=== PATIENT | male | born 1945 | race African-American/Black ===

== ENCOUNTER 2018-04-17 11:08 | Inpatient (IN) | payer OTHER ==
[2018-04-17 11:27] VITALS: BMI 23.5
--- NOTE | 2018-04-17 13:46 | HP ---
CIWA Score Nausea/Vomitin Muscle Tremors: 2 Anxiety: 2 Agitation: 2 Paroxysmal Sweats: 1-Minimal Palms Moist Orientation: 0-Oriented Tacttile Disturbances: 1-Very Mild Itch/Numbness Auditory Disturbances: 1-Very Mild Visual Disturbances: 0-None Headache: 2-Mild CIWA-Ar Total Score: 13 - Admission Criteria OASAS Guidelines: Admission for Medically Managed Detox: Requires at least one of the followin. CIWA greater than 12 2. Seizures within the past 24 hours 3. Delirium tremens within the past 24 hours 4. Hallucinations within the past 24 hours 5. Acute intervention needed for co occurring medical disorder 6. Acute intervention needed for co occurring psychiatric disorder 7. Severe withdrawal that cannot be handled at a lower level of care (continued vomiting, continued diarrhea, abnormal vital signs) requiring intravenous medication and/or fluids 8. 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 no significant period of sobriety cirrhosis history of copd - Ebola screening Have you traveled outside of the country in the last 21 days: No Have you had contact with anyone from an Ebola affected area: No Have you been sick,other than usual withdrawal symptoms: No Do you have a fever: No - Review of Systems Constitutional: Loss of Appetite, Malaise, Night Sweats, Changes in sleep, Weakness EENT: reports: No Symptoms Reported Respiratory: reports: No Symptoms reported Cardiac: reports: No Symptoms Reported GI: reports: Nausea, Abdominal cramping : reports: No Symptoms Reported Musculoskeletal: reports: Back Pain, Muscle Pain Integumentary: reports: Dryness Neuro: reports: Headache, Tremors Endocrine: reports: No Symptoms Reported Hematology: reports: No Symptoms Reported Psychiatric: reports: No Sypmtoms Reported, Judgement Intact, Mood/Affect Appropiate, Orientated x3 Other Systems: Reviewed and Negative Patient History - Patient Medical History Hx Anemia: No Hx Asthma: No Hx Chronic Obstructive Pulmonary Disease (COPD): No Hx Cancer: No Hx Cardiac Disorders: No Hx Congestive Heart Failure: No Hx Hypertension: No Hx Hypercholesterolemia: No Hx Pacemaker: No HX Cerebrovascular Accident: No Hx Seizures: No Hx Dementia: No Hx Diabetes: No Hx Gastrointestinal Disorders: Yes (peptic ulcer) Hx Liver Disease: Yes (cirrhois) Hx Genitourinary Disorders: No Hx Sexually Transmitted Disorders: No Hx Renal Disease (ESRD): No Hx Thyroid Disease: No Hx Human Immunodeficiency Virus (HIV): No (in 2008) Hx Hepatitis C: Yes (treated) Hx Depression: No Hx Suicide Attempt: No Hx Bipolar Disorder: No Hx Schizophrenia: No Other Medical History: no suicidal,no homicidal - Patient Surgical History Hx Orthopedic Surgery: Yes (traumatic amputation of right 5th finger) - PPD History Previous Implant?: Yes Documented Results: Positive w/o proof - Smoking Cessation Smoking history: Never smoked - Substance & Tx. History Hx Alcohol Use: Yes Hx Substance Use: Yes Substance Use Type: Alcohol, Marijuana Hx Substance Use Treatment: Yes (1990 [facility] ) - Substances Abused Alcohol Route: Oral Frequency: Daily Amount used: 1 pint rum or wine Age of first use: 15 Date of Last Use: 04/17/18 Marijuana/Hashish Route: Smoking Frequency: Daily Amount used: $20 Age of first use: 15 Date of Last Use: 04/17/18 Family Disease History - Family Disease History Family Disease History: Other: Brother (alcohol) Admission Physical Exam BHS - Vital Signs Vital Signs: Vital Signs - 24 hr 04/17/18 11:24 Temperature 98.8 F Pulse Rate 83 Respiratory 17 Rate Blood Pressure 116/68 - Physical General Appearance: Yes: Moderate Distress, Tremorous, Irritable, Sweating, Anxious HEENTM: Yes: Normal ENT Inspection, LISSY, Pharynx Normal Respiratory: Yes: Lungs Clear, Normal Breath Sounds, No Respiratory Distress Neck: Yes: Supple, Trachea in good position Breast: Yes: Within Normal Limits Cardiology: Yes: Within Normal Limits, Regular Rhythm, S1, S2 Abdominal: Yes: Within Normal Limits, Normal Bowel Sounds, Non Tender, Flat, Soft Genitourinary: Yes: Within Normal Limits Back: Yes: Muscle Spasm Musculoskeletal: Yes: Back pain, Muscle Pain Extremities: Yes: Tremors Neurological: Yes: jig grinder II-XII NML intact, Fully Oriented, Alert, Motor Strength 5/5 Integumentary: Yes: Dry Lymphatic: Yes: Within Normal Limits - Diagnostic (1) Alcohol dependence with uncomplicated withdrawal Current Visit: Yes Status: Acute (2) Cannabis dependence Current Visit: Yes Status: Acute (3) Hepatitis C Current Visit: Yes Status: Acute (4) Cirrhosis Current Visit: Yes Status: Acute (5) Hypercholesteremia Current Visit: Yes Status: Acute (6) COPD (chronic obstructive pulmonary disease) Current Visit: Yes Status: Acute (7) Anxiety and depression Current Visit: Yes Status: Acute (8) Peptic ulcer disease Current Visit: Yes Status: Acute Cleared for Admission [facility] - Detox or Rehab [facility] Level of Care: Medically Managed Detox Regimen/Protocol: Librium (patient would like to be on librium,has bee in detox with librium before) [facility] Breath Alcohol Content Breath Alcohol Content: 0.02 Urine Drug Screen - Results Drug Screen Negative: No Urine Drug Screen Results: THC-Marijuana, MET-Methamphetamine Inpatient Rehab Admission - Rehab Decision to Admit Inpatient rehab admission?: No
[2018-04-17] MEDS ORDERED: LOPERAMIDE HCL 2 MG CAPSULE PO PRN (14:26)
[2018-04-17] MEDS ORDERED: IBUPROFEN 400 MG TABLET (FP) PO PRN (14:26)
[2018-04-17] MEDS ORDERED: guaiFENesin/D-METHORPHAN HB 10 ML UNIT-DOSE CUPS PO PRN (14:26)
[2018-04-17] MEDS ORDERED: MAGNESIUM CITRATE 300 ML BOTTLE PO PRN (14:26)
[2018-04-17] MEDS ORDERED: MENTHOL/PHENOL 1 EACH UD MM PRN (14:26)
[2018-04-17] MEDS ORDERED: ACETAMINOPHEN 325 MG TABLET (FP) PO PRN (14:26)
[2018-04-17] MEDS ORDERED: P-EPHED 60MG/TRIPROLIDI 2.5MG TABLET PO PRN (14:26)
[2018-04-17] MEDS ORDERED: MAG HYDROX/AL HYDROX/SIMETH 30 ML UNIT-DOSE CUP PO PRN (14:26)
[2018-04-17] MEDS ORDERED: MAGNESIUM HYDROX 2400MG/30ML ORAL SUSPENSION 30 ML CUP PO PRN (14:26)
[2018-04-17] MEDS ORDERED: chlordiazePOXIDE HCL 25 MG CAPSULE PO PRN (14:26)
[2018-04-17] MEDS ORDERED: ALBUTEROL SO4 8 GM HFA INHALER IH PRN (14:30)
--- NOTE | 2018-04-17 15:10 | CONSULT ---
[facility] Psychiatric Consult - Data Date of interview: 04/17/18 Admission source: [facility] Identifying data: This is a 72 years old male, single, childless, living alone, on pension, with no psychiatric hospitalization history, with history of Alcohol dependence, is reporting alcihil withdrawal symptoms and seeking detox. Substance Abuse History: Smoking history: Never smoked. - Substance & Tx. History. Hx Alcohol Use: Yes. Hx Substance Use: Yes. Substance Use Type: Alcohol, Marijuana. Hx Substance Use Treatment: Yes (1990 [facility] ) Medical History: HepC+, Liver Cirrhosis, COPD, Traumatic amputation of 5th finger (1970) Psychiatric History: Patient reports history bof depression and anxiety, reports no history of psychiatric hospitalization, reports no suicidal, homicdial history,. Patient is taking prior to admission: Zoloft 100mg poqd Physical/Sexual Abuse/Trauma History: Denies Additional Comment: Zoloft 100mg poqd Mental Status Exam - Mental Status Exam Alert and Oriented to: Person Cognitive Function: Fair Patient Appearance: Well Groomed Mood: Apprehensive Affect: Mood Congruent Patient Behavior: Cooperative Speech Pattern: Appropriate Voice Loudness: Mildly Soft/Quiet Thought Process: Goal Oriented Thought Disorder: Being Controlled Hallucinations: Denies Suicidal Ideation: Denies Homicidal Ideation: Denies Insight/Judgement: Fair Sleep: Difficulty falling asleep Appetite: Fair Muscle strength/Tone: Normal Gait/Station: Normal Additional Comments: Zoloft 100mg poqd Psychiatric Findings - Problem List ([place] 1, 2,3) (1) Alcohol dependence with uncomplicated withdrawal Current Visit: Yes Status: Acute (2) Anxiety and depression Current Visit: Yes Status: Acute (3) COPD (chronic obstructive pulmonary disease) Current Visit: Yes Status: Acute (4) Cannabis dependence Current Visit: Yes Status: Acute (5) Cirrhosis Current Visit: Yes Status: Acute (6) Hepatitis C Current Visit: Yes Status: Acute (7) Hypercholesteremia Current Visit: Yes Status: Acute - Initial Treatment Plan Initial Treatment Plan: Zoloft 100mg poqd
[2018-04-17] MEDS: PSYLLIUM 5.85 GM PACKET PO SCH (15:46)
[2018-04-17] MEDS: SERTRALINE HCL 50 MG TABLET (FP) PO SCH (17:34)
[2018-04-17] MEDS: chlordiazePOXIDE HCL 25 MG CAPSULE PO SCH ×2 (17:34→22:22)
[2018-04-17] MEDS ORDERED: MELATONIN 5 MG TABLETS PO PRN (22:00)
[2018-04-17] MEDS: THIAMINE HCL 100 MG TABLET (FP) PO SCH (22:21)
[2018-04-17] MEDS: ATORVASTATIN CA 10 MG TABLET (FP) PO SCH (22:22)
[2018-04-17] MEDS: CYCLOBENZAPRINE HCL 10 MG TABLET (FP) PO PRN (22:24)
[2018-04-18] MEDS: chlordiazePOXIDE HCL 25 MG CAPSULE PO SCH ×4 (06:00→22:09)
[2018-04-18] MEDS: PRENATAL VITAMINS W/ FOLIC ACID TABLET (FP) PO SCH (10:12)
[2018-04-18] MEDS: RANITIDINE HCL 150 MG TABLET (FP) PO SCH ×2 (10:12→22:09)
[2018-04-18] MEDS: SERTRALINE HCL 50 MG TABLET (FP) PO SCH (10:12)
[2018-04-18] MEDS: PSYLLIUM 5.85 GM PACKET PO SCH (10:16)
[2018-04-18 10:25] LABS: URINE APPEARANCE CLEAR; URINE BILIRUBIN NEGATIVE (<2.0 mg/dL); URINE COLOR YELLOW; URINE GLUCOSE (UA) NEGATIVE (NEGATIVE); URINE KETONE NEGATIVE (NEGATIVE); URINE LEUK ESTERASE NEGATIVE (NEGATIVE); URINE NITRITE NEGATIVE (NEGATIVE); URINE PROTEIN NEGATIVE (NEGATIVE); URINE UROBILINOGEN NEGATIVE mg/dL (0.2-1.0)
[2018-04-18 10:32] LABS: ALK PHOS 94 U/L (45-117); ANION GAP 3 MMOL/L (8-16); BILIRUBIN,TOTAL 0.8 mg/dL (0.2-1); BLOOD UREA NITROGEN 11 mg/dL (7-18); CALCIUM 8.6 mg/dL (8.5-10.1); CHLORIDE 107 mmol/L (98-107); CO2 26 mmol/L (21-32); CREATININE 1.2 mg/dL (0.55-1.3); GLUCOSE,RANDOM 90 mg/dL (74-106); POTASSIUM 4.6 mmol/L (3.5-5.1); SGOT/AST 22 U/L (15-37); SGPT/ALT 17 U/L (13-61); SODIUM 136 mmol/L (136-145); TOT PROT 8.4 g/dl (6.4-8.2)
[2018-04-18 10:41] LABS: HEMOGLOBIN 14.3 GM/dL (11.7-16.9); MCH 33.5 pg (25.7-33.7); MCHC 34.8 g/dl (32.0-35.9); MEAN CELL VOLUME 96.1 fl (80-96); MEAN PLT VOLUME 8.1 fl (7.5-11.1); PLATELET COUNT 209 K/MM3 (134-434); RBC 4.26 M/mm3 (4.00-5.60); RDW 13.5 % (11.9-15.9); WHITE BLOOD COUNT 3.4 K/mm3 (4.0-10.0)
[2018-04-18 11:15] LABS: SICKLE CELL SCREEN NEGATIVE (NEGATIVE)
--- NOTE | 2018-04-18 13:06 | PN ---
S CIWA - CIWA Score Nausea/Vomitin Muscle Tremors: 2 Anxiety: 2 Agitation: 2 Paroxysmal Sweats: 3 Orientation: 0-Oriented Tacttile Disturbances: 1-Very Mild Itch/Numbness Auditory Disturbances: 0-None Visual Disturbances: 0-None Headache: 0-None Present CIWA-Ar Total Score: 12 BHS Progress Note (SOAP) Subjective: interrupted sleep, sweats Objective: 04/18/18 13:05 Vital Signs Temperature 97.7 F 04/18/18 08:51 Pulse Rate 65 04/18/18 08:51 Respiratory Rate 18 04/18/18 08:51 Blood Pressure 130/78 04/18/18 08:51 O2 Sat by Pulse Oximetry (%) Laboratory Tests 04/18/18 04/18/18 04/18/18 06:25 06:25 06:25 WBC 3.4 L RBC 4.26 Hgb 14.3 Hct 41.0 MCV 96.1 H MCH 33.5 MCHC 34.8 RDW 13.5 Plt Count 209 MPV 8.1 Sickle Cell Screen Negative Sodium 136 Potassium 4.6 Chloride 107 Carbon Dioxide 26 Anion Gap 3 L BUN 11 Creatinine 1.2 Creat Clearance w eGFR 59.51 Random Glucose 90 Calcium 8.6 Total Bilirubin 0.8 AST 22 ALT 17 Alkaline Phosphatase 94 Total Protein 8.4 H Albumin 4.0 Urine Color Urine Appearance Urine pH Ur Specific [place] Urine Protein Urine Glucose (UA) Urine Ketones Urine Blood Urine Nitrite Urine Bilirubin Urine Urobilinogen Ur Leukocyte Esterase RPR Titer Nonreactive 04/18/18 08:30 WBC RBC Hgb Hct MCV MCH MCHC RDW Plt Count MPV Sickle Cell Screen Sodium Potassium Chloride Carbon Dioxide Anion Gap BUN Creatinine Creat Clearance w eGFR Random Glucose Calcium Total Bilirubin AST ALT Alkaline Phosphatase Total Protein Albumin Urine Color Yellow Urine Appearance Clear Urine pH 5.0 Ur Specific [place] 1.020 Urine Protein Negative Urine Glucose (UA) Negative Urine Ketones Negative Urine Blood Negative Urine Nitrite Negative Urine Bilirubin Negative Urine Urobilinogen Negative Ur Leukocyte Esterase Negative RPR Titer pt aox3 in nad ambulating Assessment: 04/18/18 13:05 withdrawal sx's Plan: cont. detox increase fluids ensure bid
[2018-04-18] MEDS: THIAMINE HCL 100 MG TABLET (FP) PO SCH (22:09)
[2018-04-18] MEDS: ATORVASTATIN CA 10 MG TABLET (FP) PO SCH (22:09)
[2018-04-19] MEDS: chlordiazePOXIDE HCL 25 MG CAPSULE PO SCH ×2 (06:27→10:10)
[2018-04-19] MEDS: PSYLLIUM 5.85 GM PACKET PO SCH (10:09)
[2018-04-19] MEDS: PRENATAL VITAMINS W/ FOLIC ACID TABLET (FP) PO SCH (10:10)
[2018-04-19] MEDS: SERTRALINE HCL 50 MG TABLET (FP) PO SCH (10:10)
[2018-04-19] MEDS: RANITIDINE HCL 150 MG TABLET (FP) PO SCH ×2 (10:10→23:09)
--- NOTE | 2018-04-19 13:49 | PN ---
S CIWA - CIWA Score Nausea/Vomitin-No Nausea/No Vomiting Muscle Tremors: 3 Anxiety: 4-Mod. Anxious/Guarded Agitation: 3 Paroxysmal Sweats: 1-Minimal Palms Moist Orientation: 0-Oriented Tacttile Disturbances: 0-None Auditory Disturbances: 0-None Visual Disturbances: 0-None Headache: 0-None Present CIWA-Ar Total Score: 11 BHS Progress Note (SOAP) Subjective: SLIGHT ANXIETY,SWEATS, DECREASED APPETITE. Objective: 04/19/18 13:48 Vital Signs 04/19/18 04/19/18 06:00 10:03 Temperature 96.8 F L 98.1 F Pulse Rate 62 86 Respiratory 18 18 Rate Blood Pressure 116/71 125/80 Laboratory Tests 04/18/18 04/18/18 04/18/18 06:25 06:25 06:25 WBC 3.4 L RBC 4.26 Hgb 14.3 Hct 41.0 MCV 96.1 H MCH 33.5 MCHC 34.8 RDW 13.5 Plt Count 209 MPV 8.1 Sickle Cell Screen Negative Sodium 136 Potassium 4.6 Chloride 107 Carbon Dioxide 26 Anion Gap 3 L BUN 11 Creatinine 1.2 Creat Clearance w eGFR 59.51 Random Glucose 90 Calcium 8.6 Total Bilirubin 0.8 AST 22 ALT 17 Alkaline Phosphatase 94 Total Protein 8.4 H Albumin 4.0 Urine Color Urine Appearance Urine pH Ur Specific [place] Urine Protein Urine Glucose (UA) Urine Ketones Urine Blood Urine Nitrite Urine Bilirubin Urine Urobilinogen Ur Leukocyte Esterase RPR Titer Nonreactive 04/18/18 08:30 WBC RBC Hgb Hct MCV MCH MCHC RDW Plt Count MPV Sickle Cell Screen Sodium Potassium Chloride Carbon Dioxide Anion Gap BUN Creatinine Creat Clearance w eGFR Random Glucose Calcium Total Bilirubin AST ALT Alkaline Phosphatase Total Protein Albumin Urine Color Yellow Urine Appearance Clear Urine pH 5.0 Ur Specific [place] 1.020 Urine Protein Negative Urine Glucose (UA) Negative Urine Ketones Negative Urine Blood Negative Urine Nitrite Negative Urine Bilirubin Negative Urine Urobilinogen Negative Ur Leukocyte Esterase Negative RPR Titer Assessment: 04/19/18 13:48 WITHDRAWALS SX Plan: CONTINUE DETOX
[2018-04-19] MEDS: chlordiazePOXIDE 5 MG CAPSULE PO SCH ×2 (19:01→23:09)
--- NOTE | 2018-04-19 22:19 | EKG ---
Test Reason : Blood Pressure : / mmHG Vent. Rate : 055 BPM Atrial Rate : 055 BPM P-R Int : 230 ms QRS Dur : 088 ms QT Int : 430 ms P-R-T Axes : 065 -02 072 degrees QTc Int : 411 ms SINUS BRADYCARDIA WITH 1ST DEGREE A-V BLOCK NONSPECIFIC T WAVE ABNORMALITY ABNORMAL ECG NO PREVIOUS ECGS AVAILABLE Confirmed by DELIA COLORADO MD ([id number]) on 04/19/2018 10:19:08 PM Referred By: Confirmed By:DELIA COLORADO MD
[2018-04-19] MEDS: CYCLOBENZAPRINE HCL 10 MG TABLET (FP) PO PRN (23:09)
[2018-04-19] MEDS: ATORVASTATIN CA 10 MG TABLET (FP) PO SCH (23:09)
[2018-04-19] MEDS: hydrOXYzine PAMOATE 50 MG CAPSULE (FP) PO PRN (23:09)
[2018-04-19] MEDS: THIAMINE HCL 100 MG TABLET (FP) PO SCH (23:09)
[2018-04-20] MEDS: chlordiazePOXIDE 5 MG CAPSULE PO SCH ×2 (05:59→10:44)
[2018-04-20] MEDS: SERTRALINE HCL 50 MG TABLET (FP) PO SCH (10:44)
[2018-04-20] MEDS: RANITIDINE HCL 150 MG TABLET (FP) PO SCH ×2 (10:44→23:07)
[2018-04-20] MEDS: PRENATAL VITAMINS W/ FOLIC ACID TABLET (FP) PO SCH (10:44)
[2018-04-20] MEDS: PSYLLIUM 5.85 GM PACKET PO SCH (10:45)
--- NOTE | 2018-04-20 16:21 | PN ---
BHS Progress Note (SOAP) Subjective: Denies withdrawal symptoms; appears anxious Objective: 04/20/18 16:20 Last Vital Signs Temp Pulse Resp BP Pulse Ox 97.9 F 82 16 121/78 04/20/18 13:28 04/20/18 13:28 04/20/18 13:28 04/20/18 13:28 Laboratory Tests 04/18/18 04/18/18 04/18/18 06:25 06:25 06:25 WBC 3.4 L RBC 4.26 Hgb 14.3 Hct 41.0 MCV 96.1 H MCH 33.5 MCHC 34.8 RDW 13.5 Plt Count 209 MPV 8.1 Sickle Cell Screen Negative Sodium 136 Potassium 4.6 Chloride 107 Carbon Dioxide 26 Anion Gap 3 L BUN 11 Creatinine 1.2 Creat Clearance w eGFR 59.51 Random Glucose 90 Calcium 8.6 Total Bilirubin 0.8 AST 22 ALT 17 Alkaline Phosphatase 94 Total Protein 8.4 H Albumin 4.0 Urine Color Urine Appearance Urine pH Ur Specific [place] Urine Protein Urine Glucose (UA) Urine Ketones Urine Blood Urine Nitrite Urine Bilirubin Urine Urobilinogen Ur Leukocyte Esterase RPR Titer Nonreactive 04/18/18 08:30 WBC RBC Hgb Hct MCV MCH MCHC RDW Plt Count MPV Sickle Cell Screen Sodium Potassium Chloride Carbon Dioxide Anion Gap BUN Creatinine Creat Clearance w eGFR Random Glucose Calcium Total Bilirubin AST ALT Alkaline Phosphatase Total Protein Albumin Urine Color Yellow Urine Appearance Clear Urine pH 5.0 Ur Specific [place] 1.020 Urine Protein Negative Urine Glucose (UA) Negative Urine Ketones Negative Urine Blood Negative Urine Nitrite Negative Urine Bilirubin Negative Urine Urobilinogen Negative Ur Leukocyte Esterase Negative RPR Titer Labs reviewed Assessment: 04/20/18 16:20 Withdrawal symptoms Plan: Continue detox Encouraged PO water hydration
[2018-04-20] MEDS: chlordiazePOXIDE HCL 10 MG CAPSULE PO SCH ×2 (17:05→23:07)
[2018-04-20] MEDS: CYCLOBENZAPRINE HCL 10 MG TABLET (FP) PO PRN (23:07)
[2018-04-20] MEDS: ATORVASTATIN CA 10 MG TABLET (FP) PO SCH (23:07)
[2018-04-20] MEDS: hydrOXYzine PAMOATE 50 MG CAPSULE (FP) PO PRN (23:07)
[2018-04-20] MEDS: THIAMINE HCL 100 MG TABLET (FP) PO SCH (23:07)
[2018-04-21] MEDS: chlordiazePOXIDE HCL 10 MG CAPSULE PO SCH (06:21)
--- NOTE | 2018-04-21 08:24 | DS ---
[facility] Detox Discharge Summary Admission Date: 04/17/18 Discharge Date: 04/21/18 - History Present History: Alcohol Dependence, Cannabis Dependence - Physical Exam Results Vital Signs: Vital Signs Temperature 97 F L 04/21/18 06:42 Pulse Rate 89 04/21/18 06:42 Respiratory Rate 18 04/21/18 06:42 Blood Pressure 108/74 04/21/18 06:42 O2 Sat by Pulse Oximetry (%) - Treatment Hospital Course: Detox Protocol Followed, Detoxed Safely, Responded well, Discharged Condition Good, Rehab Referral Accepted - Medication Discharge Medications: Ambulatory Orders Albuterol Sulfate Inhaler - [Ventolin Hfa Inhaler -] 2 inh PO Q4H PRN 04/17/18 Atorvastatin Ca [Lipitor] 10 mg PO HS 04/17/18 Cyclobenzaprine HCl [Flexeril -] 10 mg PO TID PRN 04/17/18 Doxylamine Succinate [Unisom] 25 mg PO HS 04/17/18 Psyllium Husk [Metamucil] 660 gm PO DAILY 04/17/18 Sertraline HCl [Zoloft] 100 mg PO DAILY #30 tablet 04/17/18 - Diagnosis (1) Alcohol dependence with uncomplicated withdrawal Current Visit: Yes Status: Chronic (2) Anxiety and depression Current Visit: Yes Status: Acute (3) COPD (chronic obstructive pulmonary disease) Current Visit: Yes Status: Acute (4) Cannabis dependence Current Visit: Yes Status: Chronic (5) Cirrhosis Current Visit: Yes Status: Chronic (6) Hepatitis C Current Visit: Yes Status: Chronic Qualifiers: Viral hepatitis chronicity: unspecified Hepatic coma status: without hepatic coma Qualified Code(s): B19.20 - Unspecified viral hepatitis C without hepatic coma (7) Hypercholesteremia Current Visit: Yes Status: Chronic (8) Peptic ulcer disease Current Visit: Yes Status: Chronic - AMA Did Patient Leave Against Medical Advice: No (pt declined referral to rehab)
[2018-04-21 09:14] VITALS: BP 98/64; PULSE 99; TEMP 97.7
== END 2018-04-21 09:05 | disposition home or self-care (01) | DRG 897 ==
LOC: YASAS 11:08 → Y6N 14:32
PROVIDERS: ADMIT Surgery; ATTEND Surgery
PROC: HZ2ZZZZ Detoxification Services for Substance Abuse Treatment (ICD-10-PCS; principal; 2018-04-17)
DX: F10.230 Alcohol dependence with withdrawal, uncomplicated (principal); F12.20 Cannabis dependence, uncomplicated; F41.8 Other specified anxiety disorders; F32.9 Major depressive disorder, single episode, unspecified; J44.9 Chronic obstructive pulmonary disease, unspecified; K74.60 Unspecified cirrhosis of liver; E78.00 Pure hypercholesterolemia, unspecified; K27.9 Peptic ulcer, site unspecified, unspecified as acute or chronic, without hemorrhage or perforation; Z89.021 Acquired absence of right finger(s)
CPT/HCPCS: 36415; 80053; 81003; 85027; 85660; 86593; 93005; 93010

== ENCOUNTER 2019-02-07 10:41 | Inpatient (IN) | payer OTHER ==
[2019-02-07 11:22] VITALS: BMI 22.1
--- NOTE | 2019-02-07 13:12 | HP ---
CIWA Score Nausea/Vomitin Muscle Tremors: 4-Moderate,w/Arms Extend Anxiety: 4-Mod. Anxious/Guarded Agitation: 1-Slight > Activity Paroxysmal Sweats: No Perspiration Orientation: 1-Uncertain about Date Tacttile Disturbances: 1-Very Mild Itch/Numbness Auditory Disturbances: 1-Very Mild Visual Disturbances: 1-Very Mild Sensitivity Headache: 2-Mild CIWA-Ar Total Score: 17 - Admission Criteria OASAS Guidelines: Admission for Medically Managed Detox: Requires at least one of the followin. CIWA greater than 12 2. Seizures within the past 24 hours 3. Delirium tremens within the past 24 hours 4. Hallucinations within the past 24 hours 5. Acute intervention needed for co occurring medical disorder 6. Acute intervention needed for co occurring psychiatric disorder 7. Severe withdrawal that cannot be handled at a lower level of care (continued vomiting, continued diarrhea, abnormal vital signs) requiring intravenous medication and/or fluids 8. Patient presents the following: CIWA greater than 12 Admission Criteria Met: Admission criteria met Admitting History and Physical - Admission History Source: Patient, Medical Record - Past Medical History Cardiovascular: Yes: Hyperlipdemia Pulmonary: Yes: COPD Hepatobiliary: Yes: Cirrhosis Psych: Yes: Addictions, Depression Musculoskeletal: Yes: Chronic low back pain - Smoking History Smoking history: Former smoker Have you smoked in the past 12 months: No If you are a former smoker, when did you quit?: 1997 - Alcohol/Substance Use Hx Alcohol Use: Yes - Social History Usual Living Arrangement: Yes: Alone Admission ROS [facility] Chief Complaint: I need to stop drinking and smoking reefer - it's causing me a whole lot of problems especially money ones and with my woman Allergies/Adverse Reactions: Allergies Allergy/AdvReac Type Severity Reaction Status Date / Time No Known Allergies Allergy Verified 02/07/19 11:03 History of Present Illness: 73 yo gentleman here for detox from alcohol - patient states he can't stop drinking - starts early and goes all day. Previously here in detox 04/17/18 - did okay for about two months then relapsed, never followed up on outpatient referral "I thought I was okay". No seizures but has had black outs in past. Has cirrhosis from drinking. No recent ED visits. Patient is not on disability. Patient lives alone in his apartment. He has depression but never hospitalized, on zoloft from primary, which he takes daily. Exam Limitations: No Limitations - Ebola screening Have you traveled outside of the country in the last 21 days: No (N) Have you had contact with anyone from an Ebola affected area: No Do you have a fever: No - Review of Systems Constitutional: Malaise, Changes in sleep, Weakness EENT: reports: No Symptoms Reported Respiratory: reports: Cough (sometimes a cough which just come over me - not every day but a few times a week - states he thinks it's due to the marijuana smoking - coughs up 'junk' (dark speckled phlegm)) Cardiac: reports: No Symptoms Reported GI: reports: Nausea, Poor Appetite, Poor Fluid Intake, Abdominal cramping : reports: Frequency Musculoskeletal: reports: Back Pain, Muscle Weakness Integumentary: reports: Dryness Neuro: reports: Headache, Numbness, Tremors, Weakness Endocrine: reports: No Symptoms Reported Hematology: reports: No Symptoms Reported Psychiatric: reports: Judgement Intact, Mood/Affect Appropiate, Orientated x3, Anxious Other Systems: Reviewed and Negative Patient History - Patient Medical History Hx Anemia: No Hx Asthma: No Hx Chronic Obstructive Pulmonary Disease (COPD): Yes (on inhaler) Hx Cancer: No Hx Cardiac Disorders: No Hx Congestive Heart Failure: No Hx Hypertension: No Hx Hypercholesterolemia: Yes (on medication) Hx Pacemaker: No HX Cerebrovascular Accident: No Hx Seizures: No Hx Dementia: No Hx Diabetes: No Hx Gastrointestinal Disorders: Yes (history of peptic ulcer in his 20s; constipation) Hx Liver Disease: Yes (cirrhosis; hep C treated) Hx Genitourinary Disorders: Yes (? BPH - nocturia) Hx Sexually Transmitted Disorders: No Hx Renal Disease (ESRD): No Hx Thyroid Disease: No Hx Human Immunodeficiency Virus (HIV): No Hx Hepatitis C: Yes (treated 2015) Hx Depression: Yes (on meds from primary; never hospitalized) Hx Suicide Attempt: No (ideation only 'sometimes') Hx Bipolar Disorder: No Hx Schizophrenia: No Other Medical History: back pain/sciatica - hx epidurals - Patient Surgical History Past Surgical History: Yes Hx Orthopedic Surgery: Yes (traumatic amputation of right 5th finger 1970) - PPD History Previous Implant?: Yes Documented Results: Positive w/o proof (took INH about 20 years ago) PPD to be Administered?: No - Reproductive History Patient is a Female of Child Bearing Age (11 -55 yrs old): No - Smoking Cessation Smoking history: Former smoker Have you smoked in the past 12 months: No If you are a former smoker, when did you quit?: 1997 Hx Chewing Tobacco Use: No Initiated information on smoking cessation: No - Substance & Tx. History Hx Alcohol Use: Yes Hx Substance Use: Yes Substance Use Type: Alcohol, Marijuana Hx Substance Use Treatment: Yes (detox, rehab ) - Substances abused Alcohol Substance route: Oral Frequency: Daily Amount used: 1 pint of Rum; 3 glasses wine daily Age of first use: 14 Date of last use: 02/07/19 Marijuana/Hashish Substance route: Smoking Frequency: Daily Amount used: $100/month Age of first use: 14 Date of last use: 02/06/19 Admission Physical Exam S - Vital Signs Vital Signs: Vital Signs - 24 hr 02/07/19 11:08 Temperature 98.4 F Pulse Rate 78 Respiratory 16 Rate Blood Pressure 127/89 - Physical General Appearance: Yes: Nourished, Appropriately Dressed, Moderate Distress, Thin, Tremorous, Anxious HEENTM: Yes: EOMI, Hearing grossly Normal, Normocephalic, Normal Voice, Pharynx Normal Respiratory: Yes: No Respiratory Distress Neck: Yes: No masses,lesions,Nodules Breast: Yes: Breast Exam Deferred Cardiology: Yes: Regular Rhythm, Regular Rate Abdominal: Yes: Flat, Soft Genitourinary: Yes: Frequency, Nocturia Back: Yes: Normal Inspection Musculoskeletal: Yes: full range of Motion, Gait Steady, Back pain Extremities: Yes: Normal Inspection, Normal Range of Motion, Tremors Neurological: Yes: Fully Oriented, Alert, Normal Mood/Affect, Normal Response, Numbness Integumentary: Yes: Normal Color, Dry, Warm Lymphatic: Yes: Within Normal Limits - Diagnostic (1) Alcohol dependence with uncomplicated withdrawal Current Visit: Yes Status: Chronic (2) Cannabis dependence Current Visit: Yes Status: Chronic (3) Anxiety and depression Current Visit: Yes Status: Acute (4) COPD (chronic obstructive pulmonary disease) Current Visit: Yes Status: Acute Qualifiers: COPD type: unspecified COPD Qualified Code(s): J44.9 - Chronic obstructive pulmonary disease, unspecified (5) Cirrhosis Current Visit: Yes Status: Chronic Qualifiers: Hepatic cirrhosis type: alcoholic cirrhosis Ascites presence: without ascites Qualified Code(s): K70.30 - Alcoholic cirrhosis of liver without ascites (6) Hypercholesteremia Current Visit: No Status: Chronic (7) Peptic ulcer disease Current Visit: Yes Status: Resolved (8) Hepatitis C virus infection cured after antiviral drug therapy Current Visit: Yes Status: Chronic Cleared for Admission S - Detox or Rehab [facility] Level of Care: Medically Managed Detox Regimen/Protocol: Ativan Breathalyzer - Breathalyzer Breathalyzer: 0 Urine Drug Screen - Test Device Lot number: [id number] Expiration date: 09/24/20 - Control Is test valid?: Yes - Results Drug screen NEGATIVE: No Urine drug screen results: THC-Marijuana Inpatient Rehab Admission - Rehab Decision to Admit Inpatient rehab admission?: No
[2019-02-07] MEDS ORDERED: IBUPROFEN 400 MG TABLET (FP) PO PRN (13:23)
[2019-02-07] MEDS ORDERED: LORazepam 1 MG TABLET PO PRN (13:23)
[2019-02-07] MEDS ORDERED: BISMUTH SUBSALICYLATE 524 MG/30 ML UD PO PRN (13:23)
[2019-02-07] MEDS ORDERED: ACETAMINOPHEN 325 MG TABLET (FP) PO PRN ×2 (13:23)
[2019-02-07] MEDS ORDERED: MENTHOL/PHENOL 1 EACH UD MM PRN (13:23)
[2019-02-07] MEDS ORDERED: LORazepam 2 MG TABLET PO ONE (13:23)
[2019-02-07] MEDS ORDERED: hydrOXYzine PAMOATE 25 MG CAPSULE (FP) PO PRN (13:23)
[2019-02-07] MEDS ORDERED: MAG HYDROX/AL HYDROX/SIMETH 30 ML UNIT-DOSE CUP PO PRN (13:23)
[2019-02-07] MEDS ORDERED: MAGNESIUM HYDROX 2400MG/30ML ORAL SUSPENSION 30 ML CUP PO PRN (13:23)
[2019-02-07] MEDS ORDERED: MAGNESIUM CITRATE 300 ML BOTTLE PO PRN (13:23)
[2019-02-07] MEDS ORDERED: ALBUTEROL SO4 8 GM HFA INHALER IH PRN (13:25)
[2019-02-07] MEDS ORDERED: CYCLOBENZAPRINE HCL 10 MG TABLET (FP) PO PRN (13:25)
[2019-02-07] MEDS: LIDOCAINE 5% TOPICAL PATCH TP SCH (15:58)
[2019-02-07] MEDS: SERTRALINE HCL 50 MG TABLET (FP) PO SCH (15:59)
[2019-02-07] MEDS: LORazepam 2 MG TABLET PO SCH ×2 (18:45→23:07)
--- NOTE | 2019-02-07 20:39 | PN ---
[facility] Progress Note Note: ASKED TO SEE CLIENT FOR REPORTED FALL. CLIENT STATES HE FELL ON HIS BUTTOCKS AFTER FEELING A SPASM IN HIS LEG. HE DENIES ANY PAIN, INJURIES TO INCLUDE HITTING HIS HEAD. Vital Signs (72 hours) 02/07/19 02/07/19 02/07/19 20:20 20:44 21:13 Temperature 97.5 F L 97.5 F L 97.1 F L Pulse Rate 77 77 73 Respiratory 18 18 16 Rate Blood Pressure 140/84 140/84 126/78 PT SEEN LYING IN BED A/O X3 NAD HEAD: NCAT, PERRLA, EOMI SKIN: INTACT NO INJURIES OR BRUISING EXTREMITIES: FROM W/O LIMITATION BACK: NL INSPECTION A- S/P UNWITNESSED FALL P- FALL PROTOCOL #[address] RISKS TO INCLUDE BLEEDING D/W CLIENT. CLIENT ACCEPTS RISK CONT TO MONITOR CLOSELY/ MAINTAIN FALL SAFETY PRECAUTION
[2019-02-07] MEDS: ATORVASTATIN CA 10 MG TABLET (FP) PO SCH (23:07)
[2019-02-07] MEDS: MELATONIN 5 MG TABLETS PO PRN (23:07)
[2019-02-07] MEDS: THIAMINE HCL 100 MG TABLET (FP) PO SCH (23:07)
[2019-02-07] MEDS: LIDOCAINE PATCH REMOVAL MC SCH (23:11)
[2019-02-08] MEDS: LORazepam 2 MG TABLET PO SCH ×4 (05:50→22:30)
--- NOTE | 2019-02-08 10:22 | PN ---
S CIWA - CIWA Score Nausea/Vomitin-Mild Nausea/No Vomiting Muscle Tremors: 4-Moderate,w/Arms Extend Anxiety: 3 Agitation: 2 Paroxysmal Sweats: 2 Orientation: 1-Uncertain about Date (date of week) Tacttile Disturbances: 0-None Auditory Disturbances: 0-None Visual Disturbances: 0-None Headache: 1-Very Mild CIWA-Ar Total Score: 14 BHS Progress Note (SOAP) Subjective: 73 years old male admitted on 02/07/19 for alcohol withdrawal sx management treating with atian detox regimen fell on right hip 02/07/19 denies right hip pain no bruises noted ambulating from bed to bathroom steady gait Objective: 02/08/19 10:23 Vital Signs Temperature 97.7 F 02/08/19 08:20 Pulse Rate 90 02/08/19 08:20 Respiratory Rate 18 02/08/19 08:20 Blood Pressure 127/76 02/08/19 08:20 O2 Sat by Pulse Oximetry (%) 02/08/19 10:23 lab pending Assessment: 02/08/19 10:24 alcohol withdrawal 02/08/19 10:25 fall protocol bengay Plan: ativan regimen
[2019-02-08] MEDS: PRENATAL VITAMINS W/ FOLIC ACID TABLET (FP) PO SCH (10:36)
[2019-02-08] MEDS: LIDOCAINE 5% TOPICAL PATCH TP SCH (10:36)
[2019-02-08] MEDS: SERTRALINE HCL 50 MG TABLET (FP) PO SCH (10:36)
[2019-02-08 11:01] LABS: HEMATOCRIT 39.2 % (35.4-49); HEMOGLOBIN 13.2 GM/dL (11.7-16.9); MCH 32.1 pg (25.7-33.7); MCHC 33.6 g/dl (32.0-35.9); MEAN CELL VOLUME 95.4 fl (80-96); MEAN PLT VOLUME 7.8 fl (7.5-11.1); PLATELET COUNT 212 K/MM3 (134-434); RBC 4.11 M/mm3 (4.00-5.60)
[2019-02-08 11:12] LABS: ALBUMIN 3.5 g/dl (3.4-5.0); BILIRUBIN,TOTAL 0.9 mg/dL (0.2-1); BLOOD UREA NITROGEN 9.7 mg/dL (7-18); CALCIUM 8.7 mg/dL (8.5-10.1); CREATININE 1.1 mg/dL (0.55-1.3); POTASSIUM 3.9 mmol/L (3.5-5.1); TOT PROT 7.4 g/dl (6.4-8.2)
[2019-02-08] MEDS: METHYL SALICYLATE/MENTHOL OINT 30 GM TUBE TP SCH ×2 (15:30→22:29)
[2019-02-08] MEDS: ATORVASTATIN CA 10 MG TABLET (FP) PO SCH (22:30)
[2019-02-08] MEDS: THIAMINE HCL 100 MG TABLET (FP) PO SCH (22:30)
[2019-02-08] MEDS: MELATONIN 5 MG TABLETS PO PRN (22:30)
[2019-02-08] MEDS: LIDOCAINE PATCH REMOVAL MC SCH (22:31)
[2019-02-09] MEDS: LORazepam 1 MG TABLET PO SCH ×4 (06:36→22:06)
[2019-02-09] MEDS: PRENATAL VITAMINS W/ FOLIC ACID TABLET (FP) PO SCH (10:12)
[2019-02-09] MEDS: SERTRALINE HCL 50 MG TABLET (FP) PO SCH (10:12)
[2019-02-09] MEDS: METHYL SALICYLATE/MENTHOL OINT 30 GM TUBE TP SCH ×2 (10:13→22:07)
--- NOTE | 2019-02-09 10:59 | PN ---
[facility] CIWA - CIWA Score Nausea/Vomitin-Mild Nausea/No Vomiting Muscle Tremors: 3 Anxiety: 3 Agitation: 2 Paroxysmal Sweats: 1-Minimal Palms Moist Orientation: 0-Oriented Tacttile Disturbances: 1-Very Mild Itch/Numbness Auditory Disturbances: 0-None Visual Disturbances: 0-None Headache: 0-None Present CIWA-Ar Total Score: 11 S Progress Note (SOAP) Subjective: 73 years old male admitted on 02/07/19 for alcohol withdrawal sx management treating with ativan detox regimen ate breakfast tolerated food and fluid well denies dizziness ambulating on hallway steady gait denies hip pain Objective: 02/09/19 11:07 Vital Signs Temperature 97.8 F 02/09/19 09:18 Pulse Rate 93 H 02/09/19 09:18 Respiratory Rate 16 02/09/19 09:18 Blood Pressure 118/75 02/09/19 09:18 O2 Sat by Pulse Oximetry (%) Laboratory Last Values WBC 3.0 K/mm3 (4.0-10.0) L 02/08/19 08:00 RBC 4.11 M/mm3 (4.00-5.60) 02/08/19 08:00 Hgb 13.2 GM/dL (11.7-16.9) 02/08/19 08:00 Hct 39.2 % (35.4-49) 02/08/19 08:00 MCV 95.4 fl (80-96) 02/08/19 08:00 MCH 32.1 pg (25.7-33.7) 02/08/19 08:00 MCHC 33.6 g/dl (32.0-35.9) 02/08/19 08:00 RDW 14.0 % (11.9-15.9) 02/08/19 08:00 Plt Count 212 K/MM3 (134-434) 02/08/19 08:00 MPV 7.8 fl (7.5-11.1) 02/08/19 08:00 Sodium 140 mmol/L (136-145) 02/08/19 08:00 Potassium 3.9 mmol/L (3.5-5.1) 02/08/19 08:00 Chloride 107 mmol/L (98-107) 02/08/19 08:00 Carbon Dioxide 26 mmol/L (21-32) 02/08/19 08:00 Anion Gap 7 MMOL/L (8-16) L 02/08/19 08:00 BUN 9.7 mg/dL (7-18) 02/08/19 08:00 Creatinine 1.1 mg/dL (0.55-1.3) 02/08/19 08:00 Est GFR (CKD-EPI)AfAm 76.78 02/08/19 08:00 Est GFR (CKD-EPI)NonAf 66.24 02/08/19 08:00 Random Glucose 98 mg/dL (74-106) 02/08/19 08:00 Calcium 8.7 mg/dL (8.5-10.1) 02/08/19 08:00 Total Bilirubin 0.9 mg/dL (0.2-1) 02/08/19 08:00 AST 20 U/L (15-37) 02/08/19 08:00 ALT 15 U/L (13-61) 02/08/19 08:00 Alkaline Phosphatase 91 U/L (45-117) 02/08/19 08:00 Total Protein 7.4 g/dl (6.4-8.2) 02/08/19 08:00 Albumin 3.5 g/dl (3.4-5.0) 02/08/19 08:00 RPR Titer Nonreactive (NONREACTIVE) 02/08/19 08:00 lab noted Assessment: 02/09/19 11:07 alcohol withdrawal Plan: ativan regimen
[2019-02-09] MEDS: LIDOCAINE 5% TOPICAL PATCH TP SCH (11:35)
--- NOTE | 2019-02-09 16:08 | DS ---
[facility] Detox Discharge Summary Admission Date: 02/07/19 Discharge Date: 02/09/19 - Physical Exam Results Vital Signs: Vital Signs Temperature 98.0 F 02/09/19 13:07 Pulse Rate 76 02/09/19 13:07 Respiratory Rate 18 02/09/19 13:07 Blood Pressure 102/61 02/09/19 13:07 O2 Sat by Pulse Oximetry (%) - Treatment Hospital Course: Detox Protocol Followed, Discharged Condition Good - Medication Discharge Medications: Ambulatory Orders Albuterol Sulfate Inhaler - [Ventolin Hfa Inhaler -] 2 inh PO Q4H PRN 04/17/18 Atorvastatin Ca [Lipitor] 10 mg PO HS 04/17/18 Cyclobenzaprine HCl [Flexeril -] 10 mg PO TID PRN 04/17/18 Doxylamine Succinate [Unisom] 25 mg PO HS 04/17/18 Psyllium Husk [Metamucil] 660 gm PO DAILY 04/17/18 Sertraline HCl [Zoloft] 100 mg PO DAILY #30 tablet 04/17/18 - AMA Did Patient Leave Against Medical Advice: Yes
[2019-02-09] MEDS: MELATONIN 5 MG TABLETS PO PRN (22:06)
[2019-02-09] MEDS: THIAMINE HCL 100 MG TABLET (FP) PO SCH (22:06)
[2019-02-09] MEDS: ATORVASTATIN CA 10 MG TABLET (FP) PO SCH (22:06)
[2019-02-09] MEDS: LIDOCAINE PATCH REMOVAL MC SCH (22:07)
[2019-02-10] MEDS ORDERED: LORazepam 0.5 MG TABLET PO PRN
[2019-02-10] MEDS: LORazepam 0.5 MG TABLET PO SCH ×2 (05:27→10:34)
[2019-02-10 09:23] VITALS: BP 115/77; PULSE 114; TEMP 97.7
[2019-02-10] MEDS: METHYL SALICYLATE/MENTHOL OINT 30 GM TUBE TP SCH (10:33)
[2019-02-10] MEDS: LIDOCAINE 5% TOPICAL PATCH TP SCH (10:34)
[2019-02-10] MEDS: PRENATAL VITAMINS W/ FOLIC ACID TABLET (FP) PO SCH (10:34)
[2019-02-10] MEDS: SERTRALINE HCL 50 MG TABLET (FP) PO SCH (10:34)
--- NOTE | 2019-02-10 15:12 | DS ---
[facility] Detox Discharge Summary Admission Date: 02/07/19 Discharge Date: 02/10/19 - History Present History: Alcohol Dependence Additional Comments: 73 years old male admitted on 02/07/19 for alcohol withdrawal sx management treated with ativan detox regimen patient tolerated well alert oriented x 3 patient prefers to leave the detox one day early as estimated discharge day of 02/11/19 patient insists to leave the detox today "thing to do" case discuss with the nurse that routine discharge is appropriated cardiac [id number] regular rate of 85 rhythm respiratory clear lung bilaterally on auscultation extremities full range of motion - Physical Exam Results Vital Signs: Vital Signs Temperature 97.7 F 02/10/19 09:23 Pulse Rate 114 H 02/10/19 09:23 Respiratory Rate 18 02/10/19 09:23 Blood Pressure 115/77 02/10/19 09:23 O2 Sat by Pulse Oximetry (%) pulse rate repeated at 85 ppm Pertinent Admission Physical Exam Findings: alcohol withdrawal sx Laboratory Last Values WBC 3.0 K/mm3 (4.0-10.0) L 02/08/19 08:00 RBC 4.11 M/mm3 (4.00-5.60) 02/08/19 08:00 Hgb 13.2 GM/dL (11.7-16.9) 02/08/19 08:00 Hct 39.2 % (35.4-49) 02/08/19 08:00 MCV 95.4 fl (80-96) 02/08/19 08:00 MCH 32.1 pg (25.7-33.7) 02/08/19 08:00 MCHC 33.6 g/dl (32.0-35.9) 02/08/19 08:00 RDW 14.0 % (11.9-15.9) 02/08/19 08:00 Plt Count 212 K/MM3 (134-434) 02/08/19 08:00 MPV 7.8 fl (7.5-11.1) 02/08/19 08:00 Sodium 140 mmol/L (136-145) 02/08/19 08:00 Potassium 3.9 mmol/L (3.5-5.1) 02/08/19 08:00 Chloride 107 mmol/L (98-107) 02/08/19 08:00 Carbon Dioxide 26 mmol/L (21-32) 02/08/19 08:00 Anion Gap 7 MMOL/L (8-16) L 02/08/19 08:00 BUN 9.7 mg/dL (7-18) 02/08/19 08:00 Creatinine 1.1 mg/dL (0.55-1.3) 02/08/19 08:00 Est GFR (CKD-EPI)AfAm 76.78 02/08/19 08:00 Est GFR (CKD-EPI)NonAf 66.24 02/08/19 08:00 Random Glucose 98 mg/dL (74-106) 02/08/19 08:00 Calcium 8.7 mg/dL (8.5-10.1) 02/08/19 08:00 Total Bilirubin 0.9 mg/dL (0.2-1) 02/08/19 08:00 AST 20 U/L (15-37) 02/08/19 08:00 ALT 15 U/L (13-61) 02/08/19 08:00 Alkaline Phosphatase 91 U/L (45-117) 02/08/19 08:00 Total Protein 7.4 g/dl (6.4-8.2) 02/08/19 08:00 Albumin 3.5 g/dl (3.4-5.0) 02/08/19 08:00 RPR Titer Nonreactive (NONREACTIVE) 02/08/19 08:00 lab noted patient agrees to bringing in lab report to [facility] for follow up - Treatment Hospital Course: Detox Protocol Followed, Detoxed Safely, Responded well, Discharged Condition Good, Rehab Referral Accepted Patient has Accepted a Rehab Referral to: community support approach - Medication Discharge Medications: Ambulatory Orders Albuterol Sulfate Inhaler - [Ventolin Hfa Inhaler -] 2 inh PO Q4H PRN 04/17/18 Atorvastatin Ca [Lipitor] 10 mg PO HS 04/17/18 Cyclobenzaprine HCl [Flexeril -] 10 mg PO TID PRN 04/17/18 Doxylamine Succinate [Unisom] 25 mg PO HS 04/17/18 Psyllium Husk [Metamucil] 660 gm PO DAILY 04/17/18 Sertraline HCl [Zoloft] 100 mg PO DAILY #30 tablet 04/17/18 - Diagnosis (1) 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 Qualifiers: COPD type: emphysema Emphysema type: other Qualified Code(s): J43.8 - Other emphysema (2) Alcohol dependence with uncomplicated withdrawal Status: Acute (3) Hepatitis C virus infection cured after antiviral drug therapy Status: Chronic (4) Hypercholesteremia Status: Chronic (5) Peptic ulcer disease Status: Chronic - AMA Did Patient Leave Against Medical Advice: No CIWA Score - CIWA Score Nausea/Vomitin-Mild Nausea/No Vomiting Muscle Tremors: 2 Anxiety: 2 Agitation: 1-Slight > Activity Paroxysmal Sweats: No Perspiration Orientation: 0-Oriented Tacttile Disturbances: 0-None Auditory Disturbances: 0-None Visual Disturbances: 0-None Headache: 0-None Present CIWA-Ar Total Score: 6
[2019-02-11] MEDS ORDERED: LORazepam 0.5 MG TABLET PO ONE (05:00)
== END 2019-02-10 09:59 | disposition home or self-care (01) | DRG 897 ==
LOC: YASAS 10:41 → Y3N 13:55
PROVIDERS: ADMIT Allergy & Immunology; ATTEND Allergy & Immunology
PROC: HZ2ZZZZ Detoxification Services for Substance Abuse Treatment (ICD-10-PCS; principal; 2019-02-07)
DX: F10.230 Alcohol dependence with withdrawal, uncomplicated (principal); F12.20 Cannabis dependence, uncomplicated; F32.9 Major depressive disorder, single episode, unspecified; F41.9 Anxiety disorder, unspecified; J43.8 Other emphysema; E78.5 Hyperlipidemia, unspecified; K74.60 Unspecified cirrhosis of liver; M54.5 Low back pain; G89.29 Other chronic pain; Z89.021 Acquired absence of right finger(s); Z86.19 Personal history of other infectious and parasitic diseases; Z87.11 Personal history of peptic ulcer disease; Z87.891 Personal history of nicotine dependence; W18.39XA Other fall on same level, initial encounter; Z91.81 History of falling; Y93.89 Activity, other specified; Y92.238 Other place in hospital as the place of occurrence of the external cause
CPT/HCPCS: 36415; 71046-TC-FY; 80053; 85027; 86593

== ENCOUNTER 2024-05-11 15:51 | Inpatient (IN) | payer OTHER ==
[2024-05-11 16:44] VITALS: BMI 20.7
[2024-05-11] MEDS ORDERED: IBUPROFEN 600 MG TABLET (FP) PO PRN (17:32)
[2024-05-11] MEDS ORDERED: BISMUTH SUBSALICYLATE 524 MG/30 ML PO PRN (17:32)
[2024-05-11] MEDS ORDERED: NALOXONE (NARCAN) HCL 4 MG/0.1 ML SPRAY NS PRN (17:32)
[2024-05-11] MEDS ORDERED: IBUPROFEN 400 MG TABLET (FP) PO PRN (17:32)
[2024-05-11] MEDS ORDERED: LOPERAMIDE HCL 2 MG CAPSULE PO PRN (17:32)
[2024-05-11] MEDS ORDERED: guaiFENesin 600 MG TABLET.ER (FP) PO PRN (17:32)
[2024-05-11] MEDS ORDERED: ONDANSETRON *ODT* 4 MG TABLET SL PRN (17:32)
[2024-05-11] MEDS ORDERED: ACETAMINOPHEN 325 MG TABLET (FP) PO PRN (17:32)
[2024-05-11] MEDS ORDERED: BENZOCAINE/MENTHOL (CHLORASEPTIC ) LOZENGE MM PRN (17:32)
[2024-05-11] MEDS ORDERED: MAG HYDROX/AL HYDROX/SIMETH 30 ML UNIT-DOSE CUP PO PRN (17:32)
[2024-05-11] MEDS ORDERED: DICYCLOMINE HCL 10 MG CAPSULE PO PRN (17:32)
[2024-05-11] MEDS ORDERED: BENZONATATE 200 MG CAPSULE PO PRN (17:32)
[2024-05-11] MEDS ORDERED: POLYETHYLENE GLYCOL (HEALTHYLAX) 3350 17 GM PACKET PO PRN (17:32)
[2024-05-11] MEDS ORDERED: MAGNESIUM HYDROX 2400MG/30ML ORAL SUSPENSION 30 ML CUP PO PRN (17:32)
[2024-05-11] MEDS ORDERED: MELATONIN 5 MG TABLETS ONE (22:21)
[2024-05-11] MEDS: THIAMINE 100 MG TABLET PO SCH (22:23)
[2024-05-11] MEDS: MELATONIN 5 MG TABLETS PO SCH (22:23)
[2024-05-12] MEDS ORDERED: LORazepam 1 MG TABLET PO PRN (09:23)
[2024-05-12] MEDS: LORazepam 1 MG TABLET PO SCH (10:20)
[2024-05-12] MEDS: PRENATAL VITAMINS W/ FOLIC ACID TABLET (FP) PO SCH (10:21)
[2024-05-12] MEDS: FLU VACCINE (FLULAVAL) PF 45 MCG/0.5 ML SYRINGE 2024-2025 IM ONE (11:33)
[2024-05-12 13:06] LABS: CHLORIDE 105 mmol/L (98-107); POTASSIUM 3.7 mmol/L (3.5-5.1); SODIUM 138 mmol/L (136-145)
[2024-05-12 13:09] LABS: HEMATOCRIT 40.7 % (35.4-49); HEMOGLOBIN 13.5 GM/dL (11.7-16.9); MCH 35.2 pg (25.7-33.7); MCHC 33.1 g/dl (32.0-35.9); MEAN CELL VOLUME 106.6 fl (80-96); PLATELET COUNT 235 10^3/uL (134-434); RBC 3.82 M/mm3 (4.00-5.60); RDW 16.5 % (11.9-15.9); WHITE BLOOD COUNT 2.9 K/mm3 (4.0-10.0)
[2024-05-12 13:12] LABS: ALBUMIN 3.7 g/dl (3.4-5.0); ANION GAP 8 mmol/L (4-13); BLOOD UREA NITROGEN 7.3 mg/dL (7-18); CALCIUM 9.3 mg/dL (8.5-10.1); CO2 25 mmol/L (21-32); GLUCOSE,RANDOM 129 mg/dL (74-106)
[2024-05-12 13:15] LABS: CREATININE 1.1 mg/dL (0.55-1.3); SGOT/AST 38 U/L (15-37); SGPT/ALT 18 U/L (13-61)
[2024-05-12 13:17] LABS: BILIRUBIN,TOTAL 2.3 mg/dL (0.2-1); TOT PROT 7.5 g/dl (6.4-8.2)
[2024-05-12 13:18] LABS: ALK PHOS 84 U/L (45-117)
[2024-05-13] MEDS: LORazepam 1 MG TABLET PO SCH (05:44)
[2024-05-13] MEDS ORDERED: ALBUTEROL SO4 HFA INHALER IH PRN (14:37)
[2024-05-14] MEDS: LORazepam 0.5 MG TABLET PO SCH (05:58)
[2024-05-14] MEDS: METHOCARBAMOL 500 MG TABLET PO PRN (10:07)
[2024-05-14] MEDS: NALTREXONE HCL 50 MG TABLET PO ONE (11:00)
[2024-05-14] MEDS: hydrOXYzine PAMOATE 25 MG CAPSULE (FP) PO PRN (17:55)
[2024-05-14 21:30] VITALS: RESP 16
[2024-05-14] MEDS: BUDESONIDE/FORMETEROL FUMARATE 160/4.5 mcg INHALER IH SCH (23:16)
[2024-05-15] MEDS: LORazepam 0.5 MG TABLET PO ONE (06:04)
[2024-05-15 09:23] VITALS: BP 131/91; PULSE 60; TEMP 98.6
[2024-05-15] MEDS: NALTREXONE HCL 50 MG TABLET PO SCH (09:41)
== END 2024-05-15 10:30 | disposition home or self-care (01) | DRG 897 ==
LOC: YASAS 15:51 → Y6N 21:54
PROVIDERS: ADMIT Allergy & Immunology; ATTEND Allergy & Immunology
PROC: HZ2ZZZZ Detoxification Services for Substance Abuse Treatment (ICD-10-PCS; principal; 2024-05-11)
DX: F10.230 Alcohol dependence with withdrawal, uncomplicated (principal); D32.9 Benign neoplasm of meninges, unspecified; F12.20 Cannabis dependence, uncomplicated; F32.9 Major depressive disorder, single episode, unspecified; D72.819 Decreased white blood cell count, unspecified; M17.0 Bilateral primary osteoarthritis of knee; R73.9 Hyperglycemia, unspecified; Z89.021 Acquired absence of right finger(s); Z86.19 Personal history of other infectious and parasitic diseases; Z87.891 Personal history of nicotine dependence
CPT/HCPCS: 36415; 80053; 80305; 80307; 82140; 82247; 83036; 85027; 86780; 90656; 93005; 93010; G0008